=== PATIENT | female | born 1955 | race African-American/Black ===

== ENCOUNTER 2016-08-01 16:02 | Emergency (ER) | payer OTHER ==
[~2016-08-01] VITALS: Ht 172.7 cm; Wt 108.4 kg
[2016-08-01] MEDS ORDERED: HUMALOG MI100 UNIT/6 SQ (16:24)
[2016-08-01] MEDS ORDERED: ENALAPRIL MALE2.5 MG ORAL (16:24)
[2016-08-01] MEDS ORDERED: OMEPRAZOLE20 M2 ORAL (16:24)
[2016-08-01 16:55] VITALS: BP 139/79
[2016-08-01] MEDS: traMADol 50mg tab ORAL ONE ×2 (17:14→17:16)
[2016-08-01] MEDS ORDERED: IBUPROFEN600 MG ORAL (18:08)
[2016-08-01 18:16] VITALS: BP 128/80
--- NOTE | 2016-08-01 22:01 | Emergency Room Report ---
History of Present Illness General Chief Complaint: Pain Source: Patient Present Illness HPI The patient is a 60-year-old female presenting with left foot pain which began yesterday the patient states she heard a snap while walking. The patient denies twisting her ankle her hitting her foot anywhere. Patient denies prior injury to the foot. Pain is described as an 8/10 dull ache to the bottom of the midfoot. Pain does not radiate. The pt has been walking differently than usual over the past week in an attempt to walk with better form. The pt has been striking the sidewalk with her heels first and then rolling onto the forefoot. Pain worse with walking. The patient denies any numbness or tingling. Allergies: Coded Allergies: PENICILLINS (Verified Allergy, Unknown, 08/01/16) TOMATO (Verified Allergy, Unknown, 08/01/16) Patient History Past Medical History: see triage record Pertinent Family History: none Now: No : 2 Para: 1 Reviewed Nursing Documentation: PMH: Agreed, PSxH: Agreed Nursing Documentation-PMH Hx Hypertension: Yes Hx Diabetes: Yes Hx Gastrointestinal Problems: Yes - GERD Review of Systems All Other Systems: negative except mentioned in HPI Physical Exam Vital Signs Date Time Temp Pulse Resp B/P Pulse Ox O2 Delivery O2 Flow Rate FiO2 08/01/16 16:16 98.6 91 16 139/79 99 Room Air Sp02 EP Interpretation: reviewed, normal General Appearance: no apparent distress, alert, GCS 15, non-toxic Head: normocephalic, atraumatic Eyes: bilateral eye PERRL, bilateral eye normal inspection Musculoskeletal: normal range of motion, no calf tenderness, tender - TTP over the mid L foot plantar surface Neurologic: alert, oriented x3, responsive, motor strength/tone normal, sensory intact, speech normal Psychiatric: judgement/insight normal, memory normal, mood/affect normal, no suicidal/homicidal ideation Reflexes: 2+ knee (R), 2+ knee (L), 2+ ankle (R), 2+ ankle (L) Skin: normal color, no rash, warm/dry, well hydrated Lymphatic: no adenopathy Medical Decision Making PA Attestation Dr. Montaño is my supervising physician. Patient management was discussed with my supervising physician Diagnostic Impression: Primary Impression: Foot contusion ER Course The patient is a 60-year-old female presenting with left foot pain which began yesterday Ddx considered include but not limited to sprain/strain, fracture, contusion, plantar fasciitis PE: Vitals normal limits. No apparent distress Left foot: No obvious deformity. Full active range of motion. There is tenderness to palpation over the plantar surface midfoot/heel. SILT Extremity foot is unremarkable Patient is given tramadol for pain with good relief The patient is discharged home with a prescription for Motrin. RICE instructions given. ER precautions are given Other X-Ray Diagnostic Results Other X-Ray Diagnostic Results : X-Ray Ordered: L foot Date: Aug 01, 2016 Findings: no fractures, no dislocation, no soft tissue swelling Number of Views: 3 PA Scribe Text I am acting as scribe for my supervising physician. My supervising physician's interpretation of the L foot xrays are there are no fractures, dislocations or soft tissue swelling. Last Vital Signs Date Time Temp Pulse Resp B/P Pulse Ox O2 Delivery O2 Flow Rate FiO2 08/01/16 18:16 98.6 88 15 128/80 100 Room Air Status: improved Disposition: HOME, SELF-CARE Condition: Improved Scripts Ibuprofen* (MOTRIN*) 600 Mg Tablet 600 MG ORAL Q8H Y for For Pain, #30 TAB 0 Refills Prov: CLINT ORDONEZ 08/01/16 Referrals: NON PHYSICIAN (PCP) Patient Instructions: Foot Contusion Additional Instructions: I discussed my findings with the patient. All questions and concerns have been answered. Treatment and medication compliance have been addressed. I advised the patient that they need to follow up with PMD in 3-5 days. Return to ED if pain remains or worsens, numbness or tingling occurs, new rash is noticed, fever is noticed, or if needed for any reason. Patient verbalized understanding of discharge instructions. CLINT ORDONEZ Aug 01, 2016 22:01
--- NOTE | 2016-08-02 10:17 | Diagnostic Imaging Report ---
Indication: PAIN Technique: 3 views left foot Comparison: none Findings: There are plantar and calcaneal spurs. There is pes planus deformity. No acute fractures. No dislocations. Joint spaces are preserved Impression: No acute bony trauma
== END 2016-08-01 18:18 | disposition home or self-care (01) ==
LOC: EMR 17:55
DX: S90.32XA Contusion of left foot, initial encounter (principal); I10 Essential (primary) hypertension; E11.9 Type 2 diabetes mellitus without complications; K21.9 Gastro-esophageal reflux disease without esophagitis; Z88.0 Allergy status to penicillin; Z91.018 Allergy to other foods; X58.XXXA Exposure to other specified factors, initial encounter; Y92.9 Unspecified place or not applicable; Y99.8 Other external cause status
CPT/HCPCS: 99283